=== PATIENT | female | born 1980 | race Caucasian/White ===

== ENCOUNTER 2019-10-27 09:30 | Outpatient (CLI) | payer OTHER, SELFPAY ==
[2019-10-28 17:38] LABS: COVID-19 RT-PCR Result NEGATIVE (Negative)
== END 2019-10-27 09:50 ==
PROVIDERS: PCP Nurse Practitioner Family; Visit Provider Family Medicine
DX: Z11.59 Encounter for screening for other viral diseases (principal)
CPT/HCPCS: U0003

== ENCOUNTER 2020-01-24 13:29 | Outpatient (REF) | payer OTHER, SELFPAY ==
[2020-01-26 17:43] LABS: COVID-19 RT-PCR Result NEGATIVE (Negative)
== END 2020-01-24 13:49 ==
LOC: NCHCN 13:29
PROVIDERS: PCP Nurse Practitioner Family; Visit Provider Family Medicine
DX: R05 Cough (principal)
CPT/HCPCS: U0003

== ENCOUNTER 2020-04-22 14:27 | Outpatient (REF) | payer SELFPAY ==
[2020-04-27 14:55] LABS: Patient Race White; SARS-CoV-2 RNA Undetected (Undetected); SARS-CoV-2 Specimen Source Nasal
== END 2020-04-22 14:47 ==
LOC: NCHCN 14:27
PROVIDERS: PCP Nurse Practitioner Family; Visit Provider Nurse Practitioner Family
DX: Z20.828 Contact with and (suspected) exposure to other viral communicable diseases (principal)
CPT/HCPCS: U0003

== ENCOUNTER 2020-04-30 14:01 | Outpatient (REF) | payer OTHER, SELFPAY ==
[2020-04-30 21:13] LABS: Bilirubin Negative (Negative); Blood Trace-intact (Negative); Clarity Clear (Clear); Glucose Negative (Negative); Ketones Negative (Negative); Leukocyte Esterase Negative (Negative); Nitrite Negative (Negative); Specific Gravity 1.015 (1.005-1.025); Urobilinogen 0.2 EU/dL (Up TO 0.2)
[2020-04-30 21:31] LABS: Bacteria Negative HPF (Negative); C & S Indicated? No; Casts Negative LPF (Negative); Crystals Negative HPF (Negative); Epithelial Cells Negative HPF (Negative); Mucus Negative (Negative); Other Cells Negative (Negative); RBC Negative HPF (0-2); WBC Negative HPF (0-5)
== END 2020-04-30 14:21 ==
LOC: NCHCN 14:01
PROVIDERS: PCP Nurse Practitioner Family; Visit Provider Nurse Practitioner Family
DX: R31.9 Hematuria, unspecified (principal)
CPT/HCPCS: 81003; 81015

== ENCOUNTER 2020-07-17 16:04 | Outpatient (REF) | payer OTHER, SELFPAY ==
--- NOTE | 2020-07-17 15:00 | PAPFT_PTH ---
PATIENT: Winsome Snowden LOC: [facility] U#:[id number] AGE/SX: 39/F ROOM: RE07/17/[address]: Suzi Orozco : 1980 BED: DIS: 07/17/2020 SPEC #: [id number] RECD: 07/18/20 13:02 STATUS: AUBREY REMikayla #: [id number] EDVIN: 07/17/20 15:[address]: Suzi Orozco DEPT: [facility] Cytology RECD BY: Lamar Whitman Tissues: 1 - CX/ENDOCX FOR PAP SMEARS Procedures: PAP THIN PREP/[facility] Screening HPV DNA PROBE Comments: [id number]
== END 2020-07-17 16:05 | disposition home or self-care (01) ==
LOC: NCHCN 16:04
PROVIDERS: PCP Nurse Practitioner Family; Visit Provider Nurse Practitioner Family
DX: Z12.4 Encounter for screening for malignant neoplasm of cervix (principal); Z11.51 Encounter for screening for human papillomavirus (HPV); Z00.00 Encounter for general adult medical examination without abnormal findings
CPT/HCPCS: 88142; 87624

== ENCOUNTER 2021-06-03 13:51 | Outpatient (REF) | payer OTHER, SELFPAY ==
[2021-06-04 00:30] LABS: COVID-19 RT-PCR UVMMC Result Negative (Negative)
== END 2021-06-03 13:52 | disposition home or self-care (01) ==
LOC: NCHCN 13:51
PROVIDERS: PCP Nurse Practitioner Family; Visit Provider Nurse Practitioner Family
DX: Z20.822 Contact with and (suspected) exposure to COVID-19 (principal)
CPT/HCPCS: U0003

== ENCOUNTER 2021-06-27 20:15 | Outpatient (REF) | payer OTHER, SELFPAY ==
[2021-06-29 15:41] LABS: COVID-19 RT-PCR UVMMC Result Negative (Negative)
== END 2021-06-27 20:16 | disposition home or self-care (01) ==
LOC: NCHCN 20:15
PROVIDERS: PCP Nurse Practitioner Family; Visit Provider Nurse Practitioner Family
DX: Z20.822 Contact with and (suspected) exposure to COVID-19 (principal)
CPT/HCPCS: U0003

== ENCOUNTER 2021-07-03 21:18 | Outpatient (REF) | payer SELFPAY ==
[2021-07-05 13:26] LABS: COVID-19 RT-PCR UVMMC Result Negative (Negative)
== END 2021-07-03 21:19 | disposition home or self-care (01) ==
LOC: NCHCN 21:18
PROVIDERS: PCP Nurse Practitioner Family; Visit Provider Nurse Practitioner Family
DX: Z20.822 Contact with and (suspected) exposure to COVID-19 (principal)
CPT/HCPCS: U0003

== ENCOUNTER 2022-12-09 14:02 | Outpatient (REF) | payer BC, SELFPAY ==
[2022-12-09 14:18] LABS: HCT 38.9 % (36.0-46.0); MCH 30.1 pg (27.0-33.0); MCHC 33.4 % (32.0-36.0); MCV 90 fL (80-95); MPV 10.1 fL (8.0-11.0); Platelet Count 331 10^3/uL (130-400); RBC 4.32 10^6/uL (3.93-5.22); RDW-SD 39.6 fL; WBC 4.84 10^3/uL (4.4-10.8)
[2022-12-09 14:54] LABS: ALT 34 U/L (14-59); AST 17 U/L (15-37); Albumin 3.9 g/dL (3.4-5.0); Alkaline Phosphatase 55 U/L (46-116); Anion Gap 9.1 mmol/L (3-11); BUN 11 mg/dL (7-18); Bilirubin, Total 0.5 mg/dL (0.2-1.0); CO2 27.9 mmol/L (21.0-32.0); CREATININE 0.6 mg/dL (0.55-1.02); Calculated LDL 138 mg/dL (<100); Chloride 105 mmol/L (98-107); Cholesterol 227 mg/dL (<200); Estimated GFR 113.44 (mL/min/1.73m2); Glucose 90 mg/dL (74-106); HDL Cholesterol 79 mg/dL (40-60); Potassium 4.6 mmol/L (3.5-5.1); Sodium 142 mmol/L (136-145); Total Protein 7.3 g/dL (6.4-8.2); Triglyceride 54 mg/dL (<150)
[2022-12-09 15:47] LABS: Vitamin D 25 Total 28.6 ng/mL (30-100)
== END 2022-12-09 14:03 | disposition home or self-care (01) ==
LOC: NCHCN 14:02
PROVIDERS: PCP Nurse Practitioner Family; Visit Provider Nurse Practitioner Family
DX: Z00.00 Encounter for general adult medical examination without abnormal findings (principal)
CPT/HCPCS: 80053; 80061; 82306; 85027

== ENCOUNTER 2023-04-14 14:40 | Outpatient (REF) | payer BC, SELFPAY ==
--- NOTE | 2023-04-14 09:02 | SKI_PTH ---
PATIENT: Winsome Snowden LOC: [facility] U#:[id number] AGE/SX: 42/F ROOM: RE04/14/[address]: Suzi Orozco : 1980 BED: DIS: 04/14/2023 SPEC #: [id number] RECD: 04/14/23 17:40 STATUS: AUBREY JACINTO #: [id number] EDVIN: 04/14/23 09:[address]: Suzi Orozco DEPT: Surgical Specimen RECD BY: Lamar Whitman Tissues: 1 - SKIN BIOPSY(SHAVE/PUNCH) Procedures: SKIN LEVEL 4 Comments: [id number]
== END 2023-04-14 14:41 | disposition home or self-care (01) ==
LOC: NCHCN 14:40
PROVIDERS: PCP Nurse Practitioner Family; Visit Provider Nurse Practitioner Family
DX: L98.9 Disorder of the skin and subcutaneous tissue, unspecified (principal)
CPT/HCPCS: 88305

== ENCOUNTER 2024-11-01 09:04 | Outpatient (REF) | payer OTHER, SELFPAY ==
[2024-11-01 14:35] LABS: HCT 24.6 % (36.0-46.0); MCH 16.5 pg (27.0-33.0); Platelet Count 354 10^3/uL (130-400); RBC 3.87 10^6/uL (3.93-5.22); RDW 18.3 % (11.7-14.6); RDW-SD 40.6 fL; WBC 7.35 10^3/uL (4.4-10.8)
[2024-11-01 14:55] LABS: MCV 64 fL (80-95)
[2024-11-01 14:57] LABS: Iron 13 ug/dL (50-170); Total Iron Binding Capacity 431 ug/dL (250-450)
[2024-11-01 15:01] LABS: Ferritin 5 ng/mL (8-252)
[2024-11-01 15:14] LABS: HGB 6.4 g/dL (11.2-15.7)
== END 2024-11-01 09:05 | disposition home or self-care (01) ==
LOC: NCHCN 09:04
PROVIDERS: PCP Nurse Practitioner Family; Visit Provider Nurse Practitioner Family
DX: R53.83 Other fatigue (principal)
CPT/HCPCS: 85027; 82728; 83540; 83550